=== PATIENT | female | born 1980 | race Hispanic/Latino ===

== ENCOUNTER 2020-02-29 08:30 | Outpatient (CLI) | payer OTHER ==
--- NOTE | 2020-02-29 10:12 | ULT ---
Pelvic ultrasound: 02/29/2020 COMPARISON: None HISTORY: Chronic anemia with irregular menses TECHNIQUE: Multiplanar grayscale sonographic imaging of the pelvis obtained with transabdominal and e ndovaginal imaging. The ovaries are assessed with Doppler interrogation including color flow and spectral analysis FINDINGS: Endometrial thickness is 5 mm, within normal limits. No free fluid is noted within the pelv is. The uterus measures 9.2 x 5.6 x 4.6 cm and demonstrates a heterogeneous in nature. No discrete measur able uterine fibroid is seen. Heterogeneity and enlargement of the uterus may signify small uterine fibroids. This could be better assessed with MRI if clinically warranted. Right ovary measures 2.7 x 2.3 x 1.7 cm and left ovary measures 2.5 x 2.0 x 1.8 cm. No discrete ovari an or adnexal mass. Normal blood flow noted within the ovaries. IMPRESSION: Heterogeneity of the uterus with no measurable fibroid. Normal endometrial thickness.
== END 2020-02-29 08:31 | disposition home or self-care (01) ==
LOC: BICULT 08:30
PROVIDERS: ATTEND Family Medicine
DX: N92.6 Irregular menstruation, unspecified (principal); D64.9 Anemia, unspecified; N85.8 Other specified noninflammatory disorders of uterus
CPT/HCPCS: 76856

== ENCOUNTER 2020-05-02 10:40 | Day surgery (SDC) | payer OTHER ==
[~2020-05-02 10:40] MED LIST: Ferumoxytol (NON ERSD) 510 MG in Sodium Chloride 0.9% 250 ML 150 ML IVPB SCH
[2020-05-02] MEDS ORDERED: Sodium Chloride 0.9% 20 ML ONE (10:48)
[2020-05-02 10:59] VITALS: BP 119/68; TEMP 98
[2020-05-02 11:08] LABS: #Basophils 0.1 thou/uL (0.0-0.2); #Eosinphils 0.2 thou/uL (0.0-0.7); #Lymphocytes 2.3 thou/uL (1.20-3.40); #Monocytes 0.3 thou/uL (0.11-0.59); #Neutrophils 3.6 thou/uL (1.40-6.50); %Basophils 1.8 % (0.0-1.0); %Eosinophils 2.7 % (0.0-10.0); %Monocytes 4.9 % (0.0-10.0); %Neutrophils 55.5 % (42.0-75.0); Hemoglobin 10.7 g/dL (12.0-16.0); Mean Corpuscular HGB CONC 31.5 g/dL (32.0-36.0); Mean Corpuscular Hemoglobin 24.3 pg (27.0-31.0); Mean Platelet Volume 7.8 fL (7.4-10.4); Platelet Count 367 thou/uL (130-400); RBC Distribution Width 17.8 % (11.5-14.5); White Blood Cell (WBC) Count 6.5 thou/uL (4.8-10.8)
== END 2020-05-02 12:11 ==
LOC: ONC/OP 10:40
PROVIDERS: ATTEND Internal Medicine Medical Oncology
DX: D50.8 Other iron deficiency anemias (principal); D51.8 Other vitamin B12 deficiency anemias
CPT/HCPCS: 85025; 96365; J7050; Q0138

== ENCOUNTER 2020-05-16 13:06 | Day surgery (SDC) | payer OTHER ==
[2020-05-16 13:20] VITALS: BP 107/59; TEMP 97.9
== END 2020-05-16 16:26 ==
LOC: ONC/OP 13:06
PROVIDERS: ATTEND Internal Medicine Medical Oncology
DX: D50.8 Other iron deficiency anemias (principal); D51.8 Other vitamin B12 deficiency anemias
CPT/HCPCS: 96365; J7050; Q0138

== ENCOUNTER 2020-05-23 13:16 | Day surgery (SDC) | payer OTHER ==
[2020-05-23] MEDS ORDERED: Sodium Chloride 0.9% 20 ML ONE (13:26)
[2020-05-23 13:38] VITALS: BP 105/63; TEMP 98.1
== END 2020-05-23 14:33 ==
LOC: ONC/OP 13:16
PROVIDERS: ATTEND Internal Medicine Medical Oncology
DX: D50.8 Other iron deficiency anemias (principal); D51.8 Other vitamin B12 deficiency anemias
CPT/HCPCS: 96365; J7050; Q0138

== ENCOUNTER 2020-05-29 10:46 | Day surgery (SDC) | payer OTHER ==
[2020-05-29] MEDS ORDERED: Sodium Chloride 0.9% 20 ML ONE (10:53)
[2020-05-29] MEDS ORDERED: Ferumoxytol (NON ERSD) 510 MG in Sodium Chloride 0.9% 250 ML 150 ML IVPB SCH (11:45)
[2020-05-29 12:32] VITALS: BP 106/68; TEMP 97.3
[2020-05-29 12:47] LABS: #Basophils 0.1 thou/uL (0.0-0.2); #Eosinphils 0.1 thou/uL (0.0-0.7); #Lymphocytes 2.2 thou/uL (1.20-3.40); #Monocytes 0.4 thou/uL (0.11-0.59); #Neutrophils 4.2 thou/uL (1.40-6.50); %Basophils 1.6 % (0.0-1.0); %Eosinophils 1.6 % (0.0-10.0); %Lymphocytes 31.3 % (21.0-51.0); %Monocytes 5.2 % (0.0-10.0); %Neutrophils 60.2 % (42.0-75.0); Anisocytosis SLIGHT = 6-15 cells (100X) (0-5/hpf); Hemoglobin 12.2 g/dL (12.0-16.0); MDiff Complete? YES; Mean Corpuscular HGB CONC 32.7 g/dL (32.0-36.0); Mean Corpuscular Hemoglobin 27.2 pg (27.0-31.0); Mean Corpuscular Volume 83.1 fL (78.0-98.0); Platelet Count 363 thou/uL (130-400); Platelet Morphology Comment Appears Adequate; RBC Distribution Width 19.6 % (11.5-14.5); Red Blood Cell (RBC) Count 4.49 mill/uL (4.20-5.40)
== END 2020-05-29 16:51 ==
LOC: ONC/OP 10:46
PROVIDERS: ATTEND Internal Medicine Medical Oncology
DX: D50.8 Other iron deficiency anemias (principal); D51.8 Other vitamin B12 deficiency anemias
CPT/HCPCS: 85025; 96365; J7050; Q0138